=== PATIENT | female | born 1990 | race Caucasian/White ===

== ENCOUNTER 2018-02-21 15:17 | Emergency (ER) | payer OTHER ==
[2018-02-21 15:17] VITALS: BMI 25.8
[2018-02-21 15:23] VITALS: RESP 16; TEMP 98.6; O2SAT 99
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
[2018-02-21 18:00] LABS: HEPATITIS B SURFACE AG Negative (NEGATIVE)
[2018-02-21 18:06] LABS: HEPATITIS A IGM NEGATIVE (NEGATIVE); HEPATITIS B CORE AB NEGATIVE (NEGATIVE)
[2018-02-21 18:18] LABS: HEPATITIS C ANTIBODY NEGATIVE (NEGATIVE)
[2018-02-21] MEDS ORDERED: cefTRIAXone 250 MG, Lidocaine Hydrochloride 1% 1 ML IM STA (18:29)
[2018-02-21 19:08] VITALS: BP 129/83; PULSE 71
== END 2018-02-21 19:09 | disposition home or self-care (01) ==
LOC: C.ER 15:17
DX: Z04.41 Encounter for examination and observation following alleged adult rape (principal)
CPT/HCPCS: 36415; 80074; 86592; 86706; 96372; 99285; J0696

== ENCOUNTER 2018-02-22 19:37 | Emergency (ER) | payer OTHER ==
[2018-02-22 19:37] VITALS: BMI 25.8
[2018-02-22 19:47] VITALS: BP 127/77; PULSE 87; TEMP 98.6; O2SAT 96
[2018-02-22] MEDS ORDERED: Emtricitabine-Tenofovir 200 mg-300 mg Tab PO STA (20:02)
[2018-02-22] MEDS ORDERED: Emtricitabine-Tenofovir 200 mg-300 mg Tab PO NR (20:15)
[2018-02-22 20:45] VITALS: RESP 20
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
== END 2018-02-22 20:44 | disposition home or self-care (01) ==
LOC: C.ER 19:37 → SUPCPDRO 19:37 → C.ER 20:44
DX: Z76.0 Encounter for issue of repeat prescription (principal); T74.21XD Adult sexual abuse, confirmed, subsequent encounter